=== PATIENT | female | born 1990 | race African-American/Black ===

== ENCOUNTER 2016-12-04 20:11 | Emergency (ER) | payer OTHER | END 2016-12-05 04:06 | disposition home or self-care (01) | LOC: FER 20:11 | DX: S16.1XXA Strain of muscle, fascia and tendon at neck level, initial encounter (principal); V49.40XA Driver injured in collision with unspecified motor vehicles in traffic accident, initial encounter; Y92.410 Unspecified street and highway as the place of occurrence of the external cause | CPT/HCPCS: 72050 ==

== ENCOUNTER 2021-01-17 19:31 | Emergency (ER) | payer OTHER ==
[~2021-01-17 19:31] MED LIST: ASPIRIN EC81 MG PO; PRENATAL FORMU1 EACH PO
[2021-01-17] MEDS ORDERED: ZPAK PO (20:24)
== END 2021-01-17 21:05 | disposition home or self-care (01) ==
LOC: FER 19:31
DX: O99.512 Diseases of the respiratory system complicating pregnancy, second trimester (principal); J06.9 Acute upper respiratory infection, unspecified; O24.912 Unspecified diabetes mellitus in pregnancy, second trimester; O16.2 Unspecified maternal hypertension, second trimester; Z79.4 Long term (current) use of insulin; Z79.899 Other long term (current) drug therapy; Z3A.17 17 weeks gestation of pregnancy
CPT/HCPCS: 99284

== ENCOUNTER 2021-02-01 13:06 | Emergency (ER) | payer OTHER ==
[~2021-02-01 13:06] MED LIST changes: +ZPAK PO
[2021-02-01 15:17] LABS: BILIRUBIN NEGATIVE (NEGATIVE); BLOOD NEGATIVE Ery/uL (NEGATIVE); CLARITY CLEAR (CLEAR); COLOR YELLOW (YELLOW); GLUCOSE (U) NORMAL (NORMAL); LEUKOCYTES 2+ Leu/uL (NEGATIVE); NITRITE NEGATIVE (NEGATIVE); PROTEIN NEGATIVE (NEGATIVE); UROBILINOGEN 0.2 mg/dL (0.2-1.0)
[2021-02-01 15:34] LABS: BACTERIA 1+
[2021-02-01 15:35] LABS: SQUAMOUS EPITHELIAL CELLS 20-50
[2021-02-03 19:10] LABS: CHLAMYDIA TRACHOMATIS, NAA Negative (Negative); NEISSERIA GONORRHOEAE, NAA Negative (Negative)
== END 2021-02-01 16:35 | disposition home or self-care (01) ==
LOC: FER 13:06
PROVIDERS: Nurse Practitioner Family
DX: O99.891 Other specified diseases and conditions complicating pregnancy (principal); N89.8 Other specified noninflammatory disorders of vagina; O24.912 Unspecified diabetes mellitus in pregnancy, second trimester; O16.2 Unspecified maternal hypertension, second trimester; O99.512 Diseases of the respiratory system complicating pregnancy, second trimester; J45.909 Unspecified asthma, uncomplicated; Z3A.15 15 weeks gestation of pregnancy
CPT/HCPCS: 81001; 84112; 87088; 87210; 87491; 87591; 99283

== ENCOUNTER 2021-05-09 19:35 | Inpatient (IN) | payer OTHER ==
[~2021-05-09] VITALS: Ht 165.1 cm; Wt 126.6 kg
[2021-05-09 20:11] LABS: BILIRUBIN NEGATIVE (NEGATIVE); BLOOD 1+ Ery/uL (NEGATIVE); CLARITY CLEAR (CLEAR); COLOR YELLOW (YELLOW); GLUCOSE (U) NORMAL (NORMAL); LEUKOCYTES NEGATIVE Leu/uL (NEGATIVE); NITRITE NEGATIVE (NEGATIVE); PROTEIN NEGATIVE (NEGATIVE); SPECIFIC GRAVITY 1.015 (1.001-1.030); UROBILINOGEN 0.2 mg/dL (0.2-1.0)
[2021-05-09 20:13] LABS: ECSTASY (MDMA) NEGATIVE (NEGATIVE); MARIJUANA (THC) NEGATIVE (NEGATIVE)
[2021-05-09 20:15] LABS: AMPHETAMINES NEGATIVE (NEGATIVE); BARBITURATES NEGATIVE (NEGATIVE); METHADONE NEGATIVE (NEGATIVE); OPIATES NEGATIVE (NEGATIVE); OXYCODONE NEGATIVE (NEGATIVE)
[2021-05-09 20:16] LABS: URINARY RBC RARE
[2021-05-09 20:17] LABS: BACTERIA TRACE
[2021-05-09 20:34] LABS: HCT 32.7 % (37.0-47.0); HGB 10.9 g/dl (12.5-16.0); MCH 27.4 pg (25.0-31.0); MCHC 33.3 g/dL (32.0-36.0); MCV 82.2 fL (78.0-100.0); MPV 10.2 fL (6.0-9.5); RBC 3.98 M/uL (4.20-5.40); RDW 13.9 % (11.5-14.0); WBC 10.3 K/uL (4.0-10.5)
[2021-05-09 20:52] LABS: ALBUMIN 2.6 g/dL (3.4-5.0); BILIRUBIN - TOTAL 0.2 mg/dL (0.2-1.0); BUN/CREAT RATIO (CALC) 9.1 RATIO; CREATININE 0.44 mg/dL (0.51-0.95); GLOBULIN (CALCULATION) 4.2 g/dL; POTASSIUM 3.7 mmol/L (3.5-5.1); TOTAL PROTEIN 6.8 g/dL (6.4-8.2)
[2021-05-10 07:43] LABS: HCT 34.6 % (37.0-47.0); HGB 11.2 g/dl (12.5-16.0); MCH 27.1 pg (25.0-31.0); MCHC 32.4 g/dL (32.0-36.0); MCV 83.6 fL (78.0-100.0); MPV 10.3 fL (6.0-9.5); RBC 4.14 M/uL (4.20-5.40); RDW 13.8 % (11.5-14.0)
== END 2021-05-10 13:51 | disposition home or self-care (01) | DRG 805 ==
LOC: FOD 19:35 → FOB 19:36 → FOD 22:58 → FOB 22:58
PROVIDERS: ADMIT Obstetrics & Gynecology
PROC: 10E0XZZ Delivery of Products of Conception, External Approach (ICD-10-PCS; principal; 2021-05-09)
DX: O30.043 Twin pregnancy, dichorionic/diamniotic, third trimester (principal); O24.12 Pre-existing type 2 diabetes mellitus, in childbirth; Z37.2 Twins, both liveborn; O60.14X2 Preterm labor third trimester with preterm delivery third trimester, fetus 2; O60.14X1 Preterm labor third trimester with preterm delivery third trimester, fetus 1; O10.92 Unspecified pre-existing hypertension complicating childbirth; E11.9 Type 2 diabetes mellitus without complications; O99.214 Obesity complicating childbirth; O99.52 Diseases of the respiratory system complicating childbirth; J45.909 Unspecified asthma, uncomplicated; O36.8931 Maternal care for other specified fetal problems, third trimester, fetus 1; F41.8 Other specified anxiety disorders; O99.344 Other mental disorders complicating childbirth; Z3A.29 29 weeks gestation of pregnancy
CPT/HCPCS: 36415; 80053; 80305; 81001; 82962; J0290; J0702; J3475; J7050; J7120; U0002